=== PATIENT | female | born 1960 | race Caucasian/White ===

== ENCOUNTER 2022-02-13 11:37 | Emergency (ER) | payer OTHER ==
[~2022-02-13] VITALS: Ht 167.6 cm; Wt 106.6 kg
[2022-02-13 11:47] VITALS: BP 157/90
--- NOTE | 2022-02-13 12:54 | NUR ---
PT WALKED IN C/O NOSEBLEED ON LEFT NARE ONSET 3 WKS. PT STATES NOSEBLEED HAS BEEN CONSTANT DAILY. DENIES ANY TRAUMA OR INJURY TO NOSE. DENIES ANY OTHER S/SX OR COMPLAINTS. PT STATES VISITING URGENT CARE 2WKS AGO AND WAS DC WITH PX BENADRYL WITH NO RELIEF. NOT ACTIVELY BLEEDING. PMH: HTN, HYPOTHYROIDISM, APPENDICITIS
[2022-02-13] MEDS ORDERED: OXYM15SP72 NS (13:28)
--- NOTE | 2022-02-13 13:30 | NUR ---
Patient discharged with v/s stable. Written and verbal after care instructions given and explained. Patient alert, oriented and verbalized understanding of instructions. Ambulatory with steady gait. All questions addressed prior to discharge. ID band removed. Patient advised to follow up with PMD. Rx of AFRIN given. Patient educated on indication of medication including possible reaction and side effects. Opportunity to ask questions provided and answered.
== END 2022-02-13 13:30 | disposition home or self-care (01) ==
LOC: MED 11:37
DX: R04.0 Epistaxis (principal)
CPT/HCPCS: 99282